=== PATIENT | female | born 1940 | race Caucasian/White ===

== ENCOUNTER 2023-01-10 11:51 | Day surgery (SDC) | payer MEDICARE, MEDICAID ==
[~2023-01-10] VITALS: Ht 154.9 cm; Wt 82.9 kg
[2023-01-10] VITALS (8 sets, daily range): BP systolic 94–125; BP diastolic 43–85; PULSE 58–64; RESP 14–16; TEMP 97.6; O2SAT 96–98
[2023-01-10] MEDS ORDERED: midazolam 1 mg/ML 2ml injection ONE (12:20)
[2023-01-10] MEDS ORDERED: fentaNYL/PF 50MCG/1 ML 2ML syringe ONE (12:20)
[2023-01-10] MEDS ORDERED: verapamil 2.5 mg/ml inj IV ONE (12:20)
[2023-01-10] MEDS ORDERED: heparin 1,000 UNITS/NS 500ml 500 ML ONE ×2 (12:21)
[2023-01-10] MEDS ORDERED: LIDOcaine 1% (10mg/ml)w/preservative inj. 20ml MDV ONE (12:21)
[2023-01-10] MEDS ORDERED: nitroGLYCERIN 500mcg/5mL D5W 5 ML IV ONE (12:21)
[2023-01-10] MEDS ORDERED: heparin 1,000unit/ml 10ml vial 10 ML ONE (12:21)
[2023-01-10] MEDS ORDERED: iohexol 350MG/ML 100ml bottle IV ONE (12:21)
[2023-01-10] MEDS ORDERED: normal saline 1,000 ML IV SCH (12:25)
[2023-01-10] MEDS ORDERED: LORazepam 0.5 MG tablet PO PRN (12:25)
[2023-01-10] MEDS ORDERED: diphenhydrAMINE 25mg capsule PO PRN (12:25)
[2023-01-10] MEDS ORDERED: PRAV40TA3 PO (12:27)
[2023-01-10] MEDS ORDERED: SERT-433 PO (12:27)
[2023-01-10] MEDS ORDERED: LISI10TA27 PO (12:27)
[2023-01-10] MEDS ORDERED: LIDOcaine 1% (10mg/ml) 2ml vial ONE ×2 (12:27→12:36)
[2023-01-10] MEDS ORDERED: DULA1.5P SQ (12:27)
[2023-01-10] MEDS ORDERED: HYDR-3972 PO (12:27)
[2023-01-10] MEDS ORDERED: GABA600T13 PO (12:27)
[2023-01-10 13:01] LABS: BASOPHILS # (AUTO) 0.1 X10'3 (0-0.2); BASOPHILS % (AUTO) 0.9 % (0-1); EOSINOPHILS # (AUTO) 0.1 X10'3 (0-0.9); HEMATOCRIT 36.2 % (35.0-45.0); HEMOGLOBIN 11.8 g/dl (12.0-16.0); LYMPHOCYTES # (AUTO) 2.6 X10'3 (1.1-4.8); LYMPHOCYTES % (AUTO) 34.8 % (21-51); MEAN CORPUSCULAR HEMOGLOBIN 26.9 PG (27.0-31.0); MEAN CORPUSCULAR HGB CONC 32.6 g/dL (33.0-36.5); MEAN CORPUSCULAR VOLUME 82.3 FL (78-98); MEAN PLATELET VOLUME 7.6 FL (7.4-10.4); MONOCYTES # (AUTO) 0.7 X10'3 (0-0.9); MONOCYTES % (AUTO) 9.4 % (2-12); NEUTROPHILS % (AUTO) 52.9 % (42-75); PLATELET COUNT 147 X10'3 (140-440); RED BLOOD COUNT 4.39 X10'6 (4.20-5.60); RED CELL DISTRIBUTION WIDTH 14.7 % (11.5-14.5); WHITE BLOOD COUNT 7.5 X10'3 (4.5-11.0)
[2023-01-10 13:11] LABS: ALBUMIN 3.3 G/DL (3.4-5.0); ANION GAP 7 (8-16); BLOOD UREA NITROGEN 38 MG/DL (7-18); BUN/CREATININE RATIO 22.4 (10.0-20.0); CHLORIDE 103 MMOL/L (99-107); GLUCOSE 128 MG/DL (70-104); POTASSIUM 4.5 MMOL/L (3.5-5.1); SODIUM 138 MMOL/L (135-145); TOTAL CARBON DIOXIDE 27.6 MMOL/L (24-32); eCRCL 20 ML/MIN; eGFR 29 ML/MIN
[2023-01-10 13:14] LABS: APTT 29 SECONDS (22-32); PROTHROMBIN TIME 10.9 SECONDS (9.0-12.0)
[2023-01-10] MEDS ORDERED: atropine 0.1mg/ml 10ml syringe ONE (14:10)
[2023-01-10] MEDS ORDERED: aspirin 325mg tablet ONE (14:20)
[2023-01-10] MEDS ORDERED: clopidogrel 300mg tablet ONE (14:20)
--- NOTE | 2023-01-10 16:16 | NUR ---
Plavix 3 day dose obtained from pharmacy. Pt and daughter educated on importance of new RX. Original of RX Plavix given to patient to fill at her pharmacy in [place].
[2023-01-11 06:11] LABS: ISTAT HGB MIX 9.9 g/dl (12.0-16.0); ISTAT Hct MIX 29 %PCV (35-45); ISTAT O2 SATURATION MIX VENOUS 64 % (60-80); ISTAT SOURCE VEN
[2023-01-11 06:11] LABS: ISTAT HGB ART 10.2 g/dl (12.0-16.0); ISTAT Hct ART 30 %PCV (35-45); ISTAT O2 SATURATION ARTERIAL 95 % (95-98); ISTAT SOURCE BLNK
== END 2023-01-10 17:30 | disposition home or self-care (01) ==
LOC: SSTAY O 11:51
PROVIDERS: ATTEND Student in an Organized Health Care Education/Training Program
DX: I35.0 Nonrheumatic aortic (valve) stenosis (principal); I25.10 Atherosclerotic heart disease of native coronary artery without angina pectoris; E11.22 Type 2 diabetes mellitus with diabetic chronic kidney disease; I12.9 Hypertensive chronic kidney disease with stage 1 through stage 4 chronic kidney disease, or unspecified chronic kidney disease; N18.30 Chronic kidney disease, stage 3 unspecified; I25.2 Old myocardial infarction; E78.5 Hyperlipidemia, unspecified; Z79.82 Long term (current) use of aspirin; Z79.899 Other long term (current) drug therapy
CPT/HCPCS: 36415; 80048; 82803; 85014; 85025; 85610; 85730; 93005; 93456; 99152; 99153; A6258; C1874; C9600; J1644; J2250; J3010; J3490; J7030; Q9967; A6402; C1725; C1751; C1769; C1894; J0461

== ENCOUNTER → 2023-06-15 | Outpatient (CLI) | payer MEDICARE, OTHER ==
[~2023-06-15] MED LIST: DULA1.5P SQ; GABA600T13 PO; HYDR-3972 PO; IODIXANOL 320 MG/ML INFUS..BTL 100ML IV ONE; LISI10TA27 PO; PRAV40TA3 PO; SERT-433 PO
[2023-06-15 15:11] LABS: BASOPHILS # (AUTO) 0.1 X10'3 (0-0.2); BASOPHILS % (AUTO) 0.6 % (0-1); EOSINOPHILS # (AUTO) 0.2 X10'3 (0-0.9); EOSINOPHILS % (AUTO) 2.2 % (0-6); HEMATOCRIT 30.8 % (35.0-45.0); HEMOGLOBIN 9.7 g/dl (12.0-16.0); LYMPHOCYTES # (AUTO) 1.9 X10'3 (1.1-4.8); LYMPHOCYTES % (AUTO) 21.8 % (21-51); MEAN CORPUSCULAR HEMOGLOBIN 25.5 PG (27.0-31.0); MEAN CORPUSCULAR HGB CONC 31.6 g/dL (33.0-36.5); MEAN CORPUSCULAR VOLUME 80.7 FL (78-98); MONOCYTES # (AUTO) 0.8 X10'3 (0-0.9); MONOCYTES % (AUTO) 8.9 % (2-12); NEUTROPHILS # (AUTO) 5.8 X10'3 (1.8-7.7); NEUTROPHILS % (AUTO) 66.5 % (42-75); PLATELET COUNT 151 X10'3 (140-440); RED BLOOD COUNT 3.82 X10'6 (4.20-5.60); WHITE BLOOD COUNT 8.8 X10'3 (4.5-11.0)
[2023-06-15 15:20] LABS: APTT 30 SECONDS (22-32); INR 1.3 INR; PROTHROMBIN TIME 13.4 SECONDS (9.0-12.0)
[2023-06-15 15:21] LABS: ALANINE AMINOTRANSFERASE 11 U/L (12-78); ALBUMIN 2.7 G/DL (3.4-5.0); ALBUMIN/GLOBULIN RATIO 0.6 (1.1-1.5); ALKALINE PHOSPHATASE 88 IU/L (46-116); ANION GAP 5 (8-16); ASPARTATE AMINO TRANSFERASE 20 U/L (10-37); BILIRUBIN,TOTAL 0.6 MG/DL (0.1-1.0); BLOOD UREA NITROGEN 51 MG/DL (7-18); BUN/CREATININE RATIO 28.5 (10.0-20.0); CALCIUM 8.1 MG/DL (8.5-10.1); CHLORIDE 104 MMOL/L (99-107); CREATININE 1.79 MG/DL (0.40-0.90); GLUCOSE 112 MG/DL (70-104); POTASSIUM 4.2 MMOL/L (3.5-5.1); SODIUM 142 MMOL/L (135-145); TOTAL CARBON DIOXIDE 33.3 MMOL/L (24-32); TOTAL PROTEIN 7.1 G/DL (6.4-8.2); eGFR 27 ML/MIN
[2023-06-15 15:28] LABS: PRO BRAIN NATRIURETIC PEPTIDE 9505 PG/ML (0-450)
== END | disposition home or self-care (01) ==
LOC: RAD 14:28
PROVIDERS: ATTEND Internal Medicine Cardiovascular Disease
DX: R91.1 Solitary pulmonary nodule (principal); I51.7 Cardiomegaly; I35.0 Nonrheumatic aortic (valve) stenosis; R06.02 Shortness of breath; I65.29 Occlusion and stenosis of unspecified carotid artery; I70.0 Atherosclerosis of aorta; R09.89 Other specified symptoms and signs involving the circulatory and respiratory systems; J90 Pleural effusion, not elsewhere classified; K44.9 Diaphragmatic hernia without obstruction or gangrene; M47.814 Spondylosis without myelopathy or radiculopathy, thoracic region; J98.11 Atelectasis; Z90.6 Acquired absence of other parts of urinary tract
CPT/HCPCS: 36415; 71046; 71275; 74174; 75572; 80053; 83880; 85025; 85610; 85730; J3490; Q9967

== ENCOUNTER 2023-07-20 09:32 | Inpatient (IN) | payer MEDICARE, MEDICAID ==
[2023-07-19 15:53] LABS: BASOPHILS # (AUTO) 0.1 X10'3 (0-0.2); BASOPHILS % (AUTO) 0.9 % (0-1); EOSINOPHILS # (AUTO) 0.3 X10'3 (0-0.9); EOSINOPHILS % (AUTO) 4.2 % (0-6); LYMPHOCYTES # (AUTO) 1.3 X10'3 (1.1-4.8); MEAN CORPUSCULAR HEMOGLOBIN 25.8 PG (27.0-31.0); MEAN CORPUSCULAR HGB CONC 31.6 g/dL (33.0-36.5); MEAN CORPUSCULAR VOLUME 81.6 FL (78-98); MEAN PLATELET VOLUME 7.2 FL (7.4-10.4); MONOCYTES # (AUTO) 0.7 X10'3 (0-0.9); MONOCYTES % (AUTO) 8.9 % (2-12); NEUTROPHILS # (AUTO) 5.4 X10'3 (1.8-7.7); PRE OP HEMATOCRIT 31.2 % (35.0-45.0); PRE OP PLATELET COUNT 197 X10'3 (140-440); PRE OP WHITE BLOOD COUNT 7.8 10'3 (4.8-10.8); RED BLOOD COUNT 3.82 X10'6 (4.20-5.60); RED CELL DISTRIBUTION WIDTH 18.9 % (11.5-14.5)
[2023-07-19 16:02] LABS: PRE OP HEMOGLOBIN 9.9 g/dL (12.0-16.0)
[2023-07-19 16:07] LABS: PRE OP INR 1.2 INR; PRE OP PROTIME 12.4 SECONDS (9.0-12.0)
[2023-07-19 16:14] LABS: ALBUMIN 3.4 G/DL (3.4-5.0); ALBUMIN/GLOBULIN RATIO 0.7 (1.1-1.5); ALKALINE PHOSPHATASE 108 IU/L (46-116); BLOOD UREA NITROGEN 18 MG/DL (7-18); BUN/CREATININE RATIO 14.1 (10.0-20.0); CALCIUM 8.7 MG/DL (8.5-10.1); CHLORIDE 100 MMOL/L (99-107); CREATININE 1.28 MG/DL (0.40-0.90); HEMOGLOBIN A1C 6.7 % (4.5-6.2); PRE OP ALT 13 U/L (30-65); PRE OP ANION GAP 6 (8-16); PRE OP AST 28 U/L (10-37); PRE OP BILIRUB, TOTAL 0.5 MG/DL (0.0-1.0); PRE OP GLUCOSE 88 MG/DL (70-104); PRE OP POTASSIUM 4.7 MMOL/L (3.4-5.1); PRE OP SODIUM 136 MMOL/L (135-145); PRO BRAIN NATRIURETIC PEPTIDE 9249 PG/ML (0-450); TOTAL CARBON DIOXIDE 30.5 MMOL/L (24-32); TOTAL PROTEIN 8.3 G/DL (6.4-8.2); eGFR 40 ML/MIN
[2023-07-19] MEDS: nitroPRUSSIDE (NIPRIDE) (200MCG/ML) 100ML Drip IV SCH (16:45)
[2023-07-19 16:49] LABS: ANISOCYTOSIS 2+; ELLIPTOCYTES FEW; PLATELET ESTIMATE NORMAL
[2023-07-19] MEDS: phenylephrine inj 50 MG in normal saline 250ml IV solN IV SCH (16:50)
[~2023-07-20] VITALS: Ht 152.4 cm; Wt 87.0 kg
[2023-07-20] VITALS (12 sets, daily range): BP systolic 128–207; BP diastolic 55–108; PULSE 89–118; RESP 12–16; TEMP 97.7–98.3; O2SAT 95–100
[2023-07-20] MEDS: vancomycin 1,500 MG in NS 300ml IV soln IV ONE (05:30)
[2023-07-20] MEDS: famotidine 20mg tablet PO ONE (05:30)
[2023-07-20] MEDS: aspirin 325mg tablet PO ONE (05:30)
[2023-07-20] MEDS: cefazolin 2gm/D5W 100mL 100 ML IV ONE (05:30)
[2023-07-20] MEDS: ringers solution, lacted 1,000 ML IV SCH ×2 (05:30→13:00)
[2023-07-20] MEDS: protamine sulfate 10mg/ml inj. ONE ×2 (07:56→14:48)
[~2023-07-20 09:32] MED LIST changes: +APIX5TAB3 PO; -DULA1.5P SQ; +FURO-150 PO; +HYDR-3965 PO; -HYDR-3972 PO; +INSU100V9; -IODIXANOL 320 MG/ML INFUS..BTL 100ML IV ONE; -LISI10TA27 PO; +METO-539 PO; +POTA-192 PO; +ondansetron/PF 4mg/2ml inj IV PRN
[2023-07-20] MEDS: DOCUMENT DATE & TIME OF BETA-BLOCKER PO ONE (10:04)
[2023-07-20] MEDS ORDERED: LIDOcaine 1% (10mg/ml) 2ml vial ONE (12:41)
[2023-07-20] MEDS ORDERED: proCHLORperazine 10 MG/2 ml inj IV PRN ×2 (13:00→15:00)
[2023-07-20] MEDS ORDERED: labetalol 20mg/4ml (5mg/ml) syringe IV PRN ×2 (13:00→15:00)
[2023-07-20] MEDS ORDERED: hydrALAZINE 20mg/ml inj. IV PRN ×2 (13:00→15:00)
[2023-07-20] MEDS ORDERED: morphine 2 MG/ML inj. syringe IV PRN (13:00)
[2023-07-20] MEDS ORDERED: HYDROmorphone/PF 0.2 MG/ML SYRINGE IV PRN (13:00)
[2023-07-20] MEDS ORDERED: meperidine/PF 25mg/ml syringe IV PRN (13:00)
[2023-07-20] MEDS ORDERED: ondansetron/PF 4mg/2ml inj IV PRN ×2 (13:00→15:00)
[2023-07-20] MEDS ORDERED: HYDROcodone/acetaminophen 5mg/325mg tablet PO PRN (13:05)
[2023-07-20] MEDS ORDERED: heparin 1,000 UNITS/NS 500ml 1,500 ML ONE (13:20)
[2023-07-20] MEDS ORDERED: iohexol 350MG/ML 100ml bottle IV ONE (13:20)
[2023-07-20] MEDS ORDERED: LIDOcaine 1% 30ml preserv. free vial ONE (13:20)
[2023-07-20] MEDS ORDERED: fentaNYL/PF 50MCG/1 ML 2ML syringe ONE (13:29)
[2023-07-20] MEDS ORDERED: midazolam 1 mg/ML 2ml injection ONE (13:31)
[2023-07-20] MEDS ORDERED: heparin 1,000unit/ml 10ml vial 10 ML ONE (13:52)
[2023-07-20] MEDS ORDERED: propofol inj 20 ML IV ONE ×2 (13:52)
[2023-07-20] MEDS ORDERED: potassium CL 10mEq/100ml bag 100 ML IV PRN (15:00)
[2023-07-20] MEDS ORDERED: acetaminophen 325mg tablet PO PRN (15:00)
[2023-07-20] MEDS ORDERED: potassium Cl 20 mEq SR tablet PO PRN (15:00)
[2023-07-20] MEDS ORDERED: glucagon, human recombinant 1mg kit SUBCUT PRN (15:00)
[2023-07-20] MEDS ORDERED: diphenhydrAMINE 25mg capsule PO PRN (15:00)
[2023-07-20] MEDS ORDERED: dextrose 50%-water 50ml dispensing syringe IV PRN ×2 (15:00)
[2023-07-20] MEDS ORDERED: potassium Cl 20mEq/100mL bag 100 ML IV PRN (15:00)
[2023-07-20] MEDS ORDERED: docusate sod 100mg capsule PO PRN (15:00)
[2023-07-20] MEDS ORDERED: pantoprazole 40mg Tablet.DR PO PRN (15:00)
[2023-07-20] MEDS ORDERED: magnesium 2GM in 50ml NS 50 ML IV PRN (15:00)
[2023-07-20] MEDS ORDERED: potassium Cl 40MEQ/270ML bag 250 ML IV PRN (15:00)
[2023-07-20] MEDS ORDERED: magnesium 4gm in 100ml NS 100 ML IV PRN (15:00)
[2023-07-20] MEDS ORDERED: potassium Cl 40MEQ/1/2NS 520ml 520 ML IV PRN (15:00)
[2023-07-20] MEDS ORDERED: DEXTROSE 15 GM of carb/4 tabs (each vial/BOTTLE has 4 tablets) PO PRN ×2 (15:00)
[2023-07-20] MEDS: acetaminophen 1,000mg/100ml IV 100 ML IV ONE (15:48)
[2023-07-20] MEDS: HYDROmorphone/PF 0.2 MG/ML SYRINGE IV PRN (15:48)
[2023-07-20] MEDS: sod chloride 0.9% 10ml flush syringe IV SCH (16:00)
[2023-07-20] MEDS: morphine 4 MG/ML inj SYRINge IV PRN (16:01)
[2023-07-20] MEDS: INSULIN LISPRO 100 UNIT/ML INSULN.PEN MULTI-DOSE SQ SCH (17:00)
[2023-07-20] MEDS ORDERED: INSULIN LISPRO 100 UNIT/ML INSULN.PEN MULTI-DOSE SQ SCH (17:00)
[2023-07-20] MEDS: normal saline 1000ml 1,000 ML IV SCH (18:03)
[2023-07-20] MEDS: ceFAZolin 1GM/D5W- ADD-VANTAGE 50 ML IV SCH (18:03)
[2023-07-20] MEDS: HYDROcodone/acetaminophen 5mg/325mg tablet PO PRN (19:46)
[2023-07-20] MEDS: vancomycin/NS 1 GM ADD-VANTAGE 250 ML IV SCH (21:19)
[2023-07-20] MEDS: ALPRAZolam 0.25mg tablet PO PRN (21:22)
[2023-07-20] MEDS: gabapentin 300mg capsule PO SCH (21:22)
[2023-07-20] MEDS: sertraline 50mg tablet PO SCH (21:22)
[2023-07-21 06:00] VITALS: BP 147/54; PULSE 73; RESP 15; TEMP 97.2; O2SAT 94
[2023-07-21 06:57] LABS: BASOPHILS # (AUTO) 0.1 X10'3 (0-0.2); BASOPHILS % (AUTO) 0.9 % (0-1); EOSINOPHILS # (AUTO) 0.3 X10'3 (0-0.9); EOSINOPHILS % (AUTO) 4.6 % (0-6); HEMATOCRIT 28.2 % (35.0-45.0); LYMPHOCYTES # (AUTO) 1.1 X10'3 (1.1-4.8); LYMPHOCYTES % (AUTO) 17.4 % (21-51); MEAN CORPUSCULAR HEMOGLOBIN 26.1 PG (27.0-31.0); MEAN CORPUSCULAR VOLUME 81.6 FL (78-98); MEAN PLATELET VOLUME 7.3 FL (7.4-10.4); MONOCYTES # (AUTO) 0.6 X10'3 (0-0.9); MONOCYTES % (AUTO) 9.3 % (2-12); NEUTROPHILS # (AUTO) 4.2 X10'3 (1.8-7.7); NEUTROPHILS % (AUTO) 67.8 % (42-75); PLATELET COUNT 125 X10'3 (140-440); RED BLOOD COUNT 3.45 X10'6 (4.20-5.60); RED CELL DISTRIBUTION WIDTH 18.5 % (11.5-14.5); WHITE BLOOD COUNT 6.3 X10'3 (4.5-11.0)
[2023-07-21 07:21] LABS: ALANINE AMINOTRANSFERASE 7 U/L (12-78); ALBUMIN 2.9 G/DL (3.4-5.0); ALBUMIN/GLOBULIN RATIO 0.7 (1.1-1.5); ALKALINE PHOSPHATASE 87 IU/L (46-116); ANION GAP 7 (8-16); ASPARTATE AMINO TRANSFERASE 25 U/L (10-37); BILIRUBIN,TOTAL 0.5 MG/DL (0.1-1.0); BLOOD UREA NITROGEN 17 MG/DL (7-18); BUN/CREATININE RATIO 13.1 (10.0-20.0); CALCIUM 8.7 MG/DL (8.5-10.1); CHLORIDE 101 MMOL/L (99-107); GLUCOSE 153 MG/DL (70-104); MAGNESIUM 1.8 MG/DL (1.5-2.4); POTASSIUM 4.5 MMOL/L (3.5-5.1); PRO BRAIN NATRIURETIC PEPTIDE 6257 PG/ML (0-450); SODIUM 135 MMOL/L (135-145); TOTAL CARBON DIOXIDE 26.9 MMOL/L (24-32); TOTAL PROTEIN 7.3 G/DL (6.4-8.2); eCRCL 24 ML/MIN; eGFR 39 ML/MIN
[2023-07-21] MEDS: metoprolol succinate 25mg (24-HOUR) SR. Tablet PO SCH (07:38)
[2023-07-21] MEDS: potassium chloride 10mEq ER tablet PO SCH (07:38)
[2023-07-21] MEDS: furosemide 20MG tablet PO SCH (07:39)
[2023-07-21] MEDS: pravastatin 40mg tablet PO SCH (07:42)
[2023-07-21 11:30] VITALS: BP 139/38; PULSE 61; RESP 15; TEMP 98.3; O2SAT 96
== END 2023-07-21 16:15 | disposition home or self-care (01) | DRG 266 ==
LOC: PAS IN 09:32 → PCU 3S 16:22
PROVIDERS: ADMIT Internal Medicine Cardiovascular Disease; ATTEND Internal Medicine Cardiovascular Disease
PROC: 027F3ZZ Dilation of Aortic Valve, Percutaneous Approach (ICD-10-PCS; 2023-07-20)
PROC: 03HY32Z Insertion of Monitoring Device into Upper Artery, Percutaneous Approach (ICD-10-PCS; 2023-07-20)
PROC: B41G1ZZ Fluoroscopy of Left Lower Extremity Arteries using Low Osmolar Contrast (ICD-10-PCS; 2023-07-20)
PROC: B41F1ZZ Fluoroscopy of Right Lower Extremity Arteries using Low Osmolar Contrast (ICD-10-PCS; 2023-07-20)
PROC: 02RF38Z Replacement of Aortic Valve with Zooplastic Tissue, Percutaneous Approach (ICD-10-PCS; principal; 2023-07-20 13:23)
DX: I35.0 Nonrheumatic aortic (valve) stenosis (principal); Z00.6 Encounter for examination for normal comparison and control in clinical research program; I50.33 Acute on chronic diastolic (congestive) heart failure; I13.0 Hypertensive heart and chronic kidney disease with heart failure and stage 1 through stage 4 chronic kidney disease, or unspecified chronic kidney disease; I48.0 Paroxysmal atrial fibrillation; N18.9 Chronic kidney disease, unspecified; I25.10 Atherosclerotic heart disease of native coronary artery without angina pectoris; E78.5 Hyperlipidemia, unspecified; Z98.61 Coronary angioplasty status
CPT/HCPCS: 33361; 36415; 71045; 71046; 76937; 80053; 82948; 83036; 83735; 83880; 85008; 85025; 85347; 85610; 85730; 86885; 86900; 86901; 86920; 87081; 93005; 93308; A4618; A6258; A6449; C1756; C1760; C1769; C1894; G0378; J0131; J0690; J1170; J1644; J1815; J2250; J2270; J2371; J2405; J2704; J2720; J3010; J3370; J3490; J7030; J7040; J7050; J7120; Q9967